=== PATIENT | male | born 1965 | race Caucasian/White ===

== ENCOUNTER 2020-09-20 08:40 | Outpatient (REF) | payer MEDICARE, MEDICAID, SELFPAY ==
[2020-09-20 11:06] LABS: SARS COV2 PCR INHOUSE NEGATIVE (Negative)
== END 2020-09-20 08:41 | disposition home or self-care (01) ==
LOC: HO.LAB 08:40
PROVIDERS: Visit Provider Internal Medicine
DX: Z20.822 Contact with and (suspected) exposure to COVID-19 (principal)
CPT/HCPCS: C9803; U0003

== ENCOUNTER 2021-06-30 08:16 | Outpatient (REF) | payer MEDICARE, MEDICAID, SELFPAY ==
[2021-06-30 09:28] LABS: Binax Internal Control QC Valid; Binax Now Covid-19 Ag Negative (Negative)
== END 2021-06-30 08:17 | disposition home or self-care (01) ==
LOC: HO.LAB 08:16
PROVIDERS: Visit Provider Internal Medicine
DX: Z20.822 Contact with and (suspected) exposure to COVID-19 (principal)
CPT/HCPCS: C9803